=== PATIENT | female | born 1970 | race Caucasian/White ===

== ENCOUNTER → 2024-02-12 | Day surgery (SDC) | payer BC ==
[~2024-02-12] MED LIST: CELEBREX200 MG PO; CYCLOBENZAPRINE10 MG PO; HYDROXYZIN10 MG/5 ML PO; LACTATED RINGER'S 1,000 ML ONE; LIDOCAINE HCL 2% 2 ML AMP ONE; LOSARTAN POTASS25 MG PO; MIDAZOLAM HCL 2 MG/2 ML VIAL ONE; NEURONTIN300 MG PO; PROPOFOL IV EMULSION 10 MG/ML 20 ML VIAL ONE; ZOLPIDEM TARTRAT5 MG PO
[2024-02-12 12:57] VITALS: TEMP 97.4
[2024-02-12 13:25] VITALS: BP 123/81; PULSE 80; RESP 9; O2SAT 98
== END | disposition home or self-care (01) ==
LOC: OR 10:07
PROVIDERS: ATTEND Internal Medicine Gastroenterology
DX: Z12.11 Encounter for screening for malignant neoplasm of colon (principal); D12.0 Benign neoplasm of cecum; D12.3 Benign neoplasm of transverse colon; D12.4 Benign neoplasm of descending colon; K57.30 Diverticulosis of large intestine without perforation or abscess without bleeding; K64.8 Other hemorrhoids; G47.33 Obstructive sleep apnea (adult) (pediatric); I10 Essential (primary) hypertension; G62.9 Polyneuropathy, unspecified; M06.9 Rheumatoid arthritis, unspecified; F41.9 Anxiety disorder, unspecified; Z88.0 Allergy status to penicillin; Z01.810 Encounter for preprocedural cardiovascular examination; Z79.899 Other long term (current) drug therapy
CPT/HCPCS: 45384; 45385; 93005; J2001; J2250; J2704; J7121